=== PATIENT | female | born 1995 | race Caucasian/White ===

== ENCOUNTER 2021-07-25 17:49 | Emergency (ER) | payer BC, SELFPAY ==
--- NOTE | ~2021-07-25 | CT_ITS ---
EXAMINATION: CT HEAD WITHOUT CONTRAST CLINICAL INFORMATION: Headache. COMPARISON: None TECHNIQUE: Contiguous axial imaging was performed from the skull base to vertex without intravenous administration of contrast. This CT examination was performed using dose optimization techniques as appropriate, variously including the following: *Automated exposure control *Adjustment of mA and/or kV according to patient size (this includes techniques or standardized protocols for targeted exams where dose is matched to indication/reason for exam; i.e. extremities or head) *Use of iterative reconstruction technique DLP: 699 mGy-cm FINDINGS: There is no evidence of acute intracranial hemorrhage or territorial infarction. No abnormal mass effect or midline shift is seen. Watts to white matter differentiation is well preserved. No extra-axial fluid collections are identified. The ventricles are normal in size. There is no abnormal attenuation within the brain parenchyma. The osseous structures and soft tissues are normal. The mastoid air cells and visualized portions of the paranasal sinuses are well aerated. CT/CT head/brain wo con IMPRESSION: No acute intracranial process seen.
[2021-07-25 18:04] VITALS: BP 162/92; PULSE 86; RESP 18; O2SAT 100; BMI 28.1
--- NOTE | 2021-07-25 18:25 | ED.HA ---
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) Onset description: gradually and while at rest Location: frontal, occipital and band-like Severity: moderate Quality & Timing: aching, dull and other (started with bilateral visual changes - could see but she had floaters and waves) Exacerbating factors: light and noise Relieving factors: NSAIDs Context: occurred at rest Associated symptoms: nausea and other (noted BP to be up during the day, also states she can see fine but feels her eyes are slower to move than before but no more areas where she cannot see - visual anguiano intact) Treatments prior to arrival: other (took headache medication earlier in the day) Related Data Previous Rx's Medication Instructions Recorded ondansetron 4 mg disintegrating 4 mg PO Q8H PRN #20 tab 07/25/21 tablet Allergies Allergy/AdvReac Type Severity Reaction Status Date / Time albuterol [ALBUTEROL] Allergy Severe ANAPHYLAXIS Verified 07/25/21 18:46 diphenhydramine Allergy Severe ANAPHYLAXIS Verified 07/25/21 18:46 [From BENADRYL] kiwi [KIWI] Allergy Unknown ITCHING Verified 07/25/21 18:46 Review of Systems Review of Systems: Constitutional : No Fever, No Chills, No Fatigue ENT/Mouth : No sore throat, No Rhinorrhea Eyes: No Eye Pain, No Swelling, No Redness, pos visual changes Cardiovascular : No Chest Pain, No SOB, No Dyspnea on Exertion Respiratory : No Cough, No Sputum Gastrointestinal : pos Nausea, No Vomiting, No Diarrhea, No abdominal Pain Genitourinary : No Dysuria, No Urinary Frequency, No Hematuria, Musculoskeletal : No joint pain, No Myalgias, No Joint Swelling Skin : No Skin Lesions, No rash Neuro : No Weakness, No Numbness, No Dizziness, positive Headache Psych : No Anxiety/Panic, No Depression Heme/Lymph: No Bruising, No Bleeding,No Lymphadenopathy Endocrine : No Polyuria, No Polydipsia All other systems reviewed and are negative PMFSH Past Medical History Attestation statement: The following information was validated with the patient. Medical History Ocular migraine Social History Social History (Updated 07/25/21 @ 19:03 by Leila Casillas DO) Patient Tobacco Use Status: Never used Tobacco Advance Directives: No Advance Directives Information Provided: No Patient : No Physical Exam Vital Signs: Vital Signs: Last Vital Signs Pulse 85 07/25/21 20:07 Resp 18 07/25/21 20:07 BP 121/69 07/25/21 20:07 Pulse Ox 99 07/25/21 20:07 BMI result Body Mass Index 28.1 Appearance: Alert. Oriented X3. No acute distress. Anxious Eyes: Pupils equal, round and reactive to light. ENT: Pharynx normal. Neck: Normal inspection. Neck supple. CVS: Normal heart rate and rhythm. Pulses normal. Respiratory: No respiratory distress. Breath sounds normal. Abdomen: Soft and non-tender. Skin: Skin warm and dry. Normal skin color. Normal skin turgor. Extremities: No lower extremity edema. No calf ttp Neuro: Oriented X 3. No motor deficit. No sensory deficit. Course Course Course Narrative: BP normal now states she is still nauseated - given allergy to benadryl and no response to zofran will try low dose reglan with lose dose ativan to prevent any side effects. negative CT scan nausea improved, states she still has a mild headache, offered tylenol she states she can take it at home. 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 Her BP has been up all day and her headache/nausea still persists but she is mostly very nauseated. Her vision is stable but she notes that she feels it is taking her longer to look at one thing to another she denies any loss of vision now or visual field cuts. She has not had any imaging of her brain with these headaches but was dx with her PCP. At this time will obtain COVID swab, CT head for mass, IV medications for headache - monitor BP. Lab Data Result diagrams: 07/25/21 19:00 07/25/21 19:00 Labs: Lab Results 07/25/21 07/25/21 07/25/21 Range/Units 19:00 19:00 19:00 WBC 9.8 (4.8-10.8) X10*3/uL RBC 5.00 (4.20-5.50) X10*6/uL Hgb 13.9 (12.0-16.0) g/dl Hct 43.1 (37.0-47.0) % MCV 86.2 (80.0-98.0) fL MCH 27.8 (27.0-33.0) pg MCHC 32.3 (31.0-35.0) g/dl RDW 13.9 (11.0-16.0) % Plt Count 310 (160-400) X10*3/uL MPV 8.8 L (9.4-12.3) fL Immature Gran % (Auto) 0.3 (0.0-0.4) % Neut % (Auto) 77.0 H (45-73) % Lymph % (Auto) 14.4 L (20-40) % [place] % (Auto) 7.8 (2-11) % Eos % (Auto) 0.1 (0-4) % Baso % (Auto) 0.4 (0-2) % Lymph # (Auto) 1.4 (1.2-4.9) X10*3/uL [place] # (Auto) 0.8 (0.1-1.2) X10*3/uL Eos # (Auto) 0.0 (0.0-0.4) X10*3/uL Baso # (Auto) 0.0 (0.0-0.2) X10*3/uL Abs Immat Gran (auto) 0.03 (0.00-0.03) X10*3/uL Absolute Neuts (auto) 7.5 (2.0-8.3) x10*3/uL Absolute Nucleated RBC 0.000 (0.0-0.012) X10*3/uL Nucleated RBC % (auto) 0.0 (0.0-0.2) /100WBC Sodium 140 (135-145) mmol/L Potassium 3.5 (3.3-5.1) mmol/L Chloride 105 (96-108) mmol/L Carbon Dioxide 26 (22-29) mmol/L Anion Gap 13 (12-20) BUN 9 (9-16) mg/dL Creatinine 0.83 (0.5-1.4) mg/dL Estim Creat Clear Calc 114.8 Estimated GFR > 60 Random Glucose 92 (60-115) mg/dL Calcium 10.0 (8.4-10.2) mg/dL Urine Test (NEGATIVE) COVID-19 ([facility]) Negative (Negative) COVID-19 Clin Com See Note 07/25/21 Range/Units 20:08 WBC (4.8-10.8) X10*3/uL RBC (4.20-5.50) X10*6/uL Hgb (12.0-16.0) g/dl Hct (37.0-47.0) % MCV (80.0-98.0) fL MCH (27.0-33.0) pg MCHC (31.0-35.0) g/dl RDW (11.0-16.0) % Plt Count (160-400) X10*3/uL MPV (9.4-12.3) fL Immature Gran % (Auto) (0.0-0.4) % Neut % (Auto) (45-73) % Lymph % (Auto) (20-40) % [place] % (Auto) (2-11) % Eos % (Auto) (0-4) % Baso % (Auto) (0-2) % Lymph # (Auto) (1.2-4.9) X10*3/uL [place] # (Auto) (0.1-1.2) X10*3/uL Eos # (Auto) (0.0-0.4) X10*3/uL Baso # (Auto) (0.0-0.2) X10*3/uL Abs Immat Gran (auto) (0.00-0.03) X10*3/uL Absolute Neuts (auto) (2.0-8.3) x10*3/uL Absolute Nucleated RBC (0.0-0.012) X10*3/uL Nucleated RBC % (auto) (0.0-0.2) /100WBC Sodium (135-145) mmol/L Potassium (3.3-5.1) mmol/L Chloride (96-108) mmol/L Carbon Dioxide (22-29) mmol/L Anion Gap (12-20) BUN (9-16) mg/dL Creatinine (0.5-1.4) mg/dL Estim Creat Clear Calc Estimated GFR Random Glucose (60-115) mg/dL Calcium (8.4-10.2) mg/dL Urine Test NEGATIVE (NEGATIVE) COVID-19 ([facility]) (Negative) COVID-19 Clin Com Discharge Plan Discharge Clinical Impression: Migraine headache with aura Patient Disposition: Home, Self-Care Instructions: Migraine Headache (ED) Additional Instructions: return to ED for any worsening symptoms or concerns COVID SWAB NEGATIVE IN THE EMERGENCY DEPARTMENT FINDINGS: There is no evidence of acute intracranial hemorrhage or territorial infarction. No abnormal mass effect or midline shift is seen. Watts to white matter differentiation is well preserved. No extra-axial fluid collections are identified. The ventricles are normal in size. There is no abnormal attenuation within the brain parenchyma. The osseous structures and soft tissues are normal. The mastoid air cells and visualized portions of the paranasal sinuses are well aerated. ? CT/CT head/brain wo con IMPRESSION: No acute intracranial process seen. Prescriptions: New ondansetron 4 mg tablet,disintegrating 4 mg PO Q8H PRN (Reason: nausea and vomiting) Qty: 20 0RF Referrals: Becca Peacock MD [Physician] - 2 weeks (Neurologist) Stand Alone Forms: Work/School Release
[2021-07-25] MEDS: 0.9 % Sodium Chloride 1,000 ML 999 ML IVCONT (18:54)
[2021-07-25] MEDS: Ketorolac Tromethamine 15 MG/ML VIAL 30 MG IVPUSH (18:58)
[2021-07-25] MEDS: ondansetron HCL 4 MG/2 ML VIAL IVPUSH (18:58)
[2021-07-25 19:03] LABS: MANUAL DIFF FLAG NO
[2021-07-25 19:04] LABS: Basophils Percent Auto 0.4 % (0-2); Eosinophils Percent Auto 0.1 % (0-4); Hematocrit 43.1 % (37.0-47.0); Hemoglobin 13.9 g/dl (12.0-16.0); Imm Gran Abs Auto 0.03 X10*3/uL (0.00-0.03); Imm Gran Pct Auto 0.3 % (0.0-0.4); Lymphocytes Absolute Auto 1.4 X10*3/uL (1.2-4.9); Lymphocytes Percent Auto 14.4 % (20-40); Mean Corpuscular HGB Conc 32.3 g/dl (31.0-35.0); Mean Corpuscular Hemoglobin 27.8 pg (27.0-33.0); Mean Corpuscular Volume 86.2 fL (80.0-98.0); Mean Platelet Volume 8.8 fL (9.4-12.3); Monocytes Absolute Auto 0.8 X10*3/uL (0.1-1.2); Monocytes Percent Auto 7.8 % (2-11); Neutrophils Absolute Auto 7.5 x10*3/uL (2.0-8.3); Platelet Count 310 X10*3/uL (160-400); Red Cell Distribution Width 13.9 % (11.0-16.0); White Blood Count 9.8 X10*3/uL (4.8-10.8)
[2021-07-25 19:11] VITALS: BP 120/76; PULSE 75; RESP 16; O2SAT 99
[2021-07-25 19:27] LABS: Anion Gap 13 (12-20); Blood Urea Nitrogen 9 mg/dL (9-16); Carbon Dioxide 26 mmol/L (22-29); Chloride 105 mmol/L (96-108); Creatinine Clr Calc Pharmacy 114.8; Estimated Glomerular Filt Rate > 60; Glucose Random 92 mg/dL (60-115); Potassium 3.5 mmol/L (3.3-5.1); Sodium 140 mmol/L (135-145)
[2021-07-25 19:28] LABS: COVID-19 Test Negative (Negative)
[2021-07-25 20:07] VITALS: BP 121/69; PULSE 85; RESP 18; O2SAT 99
[2021-07-25 20:14] LABS: UPreg QC Valid YES; Urine Pregnancy NEGATIVE (NEGATIVE)
[2021-07-25] MEDS: LORazepam 2 MG/ML VIAL 0.5 MG IVPUSH (20:43)
[2021-07-25] MEDS: Metoclopramide HCl 10 MG/2 ML VIAL 5 MG IVPUSH (20:45)
[2021-07-25] MEDS: Butalb/Acetamin/Caff 50/325/40 TABLET 1 TAB PO (22:15)
== END 2021-07-25 22:41 | disposition home or self-care (01) ==
PROVIDERS: Emergency Provider Emergency Medicine; PCP Physician Assistant
DX: G43.109 Migraine with aura, not intractable, without status migrainosus (principal); Z20.822 Contact with and (suspected) exposure to COVID-19; R11.0 Nausea
CPT/HCPCS: 70450; 80048; 81025; 85025; 87635; 96361; 96374; 96375; 99284; J1885; J2060; J2405; J2765